=== PATIENT | male | born 1985 | race African-American/Black ===

== ENCOUNTER 2021-10-14 12:37 | Emergency (ER) | payer SELFPAY ==
[2021-10-14] MEDS ORDERED: Ketorolac Tromethamine 30 MG/ML VIAL ONE (13:29)
[2021-10-14] MEDS ORDERED: Ondansetron ODT 4 MG TAB ONE (13:29)
[2021-10-15 15:28] LABS: SARS-CoV-2 PCR by NAA DETECTED (NotDetected)
== END 2021-10-14 13:59 | disposition home or self-care (01) ==
LOC: CSHERS 12:37
DX: U07.1 COVID-19 (principal); F17.200 Nicotine dependence, unspecified, uncomplicated
CPT/HCPCS: 87804; 96372; 99284; J1885; Q0162; U0003; U0005

== ENCOUNTER 2022-03-22 14:58 | Emergency (ER) | payer SELFPAY | END 2022-03-22 16:03 | disposition left against medical advice (07) | LOC: CSHERS 14:58 | DX: Z53.21 Procedure and treatment not carried out due to patient leaving prior to being seen by health care provider (principal) ==